=== PATIENT | female | born 1965 | race Caucasian/White ===

== ENCOUNTER 2018-04-26 15:36 | Inpatient (IN) | payer BC ==
[~2018-04-26] VITALS: Ht 165.1 cm; Wt 64.4 kg
[2018-04-26] MEDS ORDERED: diphenhydrAMINE 50 MG/ML VIAL IVP ONE (16:00)
[2018-04-26] MEDS ORDERED: METOCLOPRAMIDE 10 MG/2 ML SDV IVP ONE (16:00)
[2018-04-26] MEDS ORDERED: BUPR-472 PO (16:03)
[2018-04-26] MEDS ORDERED: VALA500T66 PO (16:03)
[2018-04-26] MEDS ORDERED: CITA-155 PO (16:03)
[2018-04-26] MEDS ORDERED: LEVO-3 PO (16:03)
--- NOTE | 2018-04-26 16:03 | ER Report ---
History and Physical Time Seen By MD: 15:50 Hx. of Stated Complaint: Pt. having headache with posterior neck stiffness. Headache started on Thursday, but was seen at [facility] on Thursday, diagnosed with right ear infection and prescribed Cefdinir. Also vomiting. Afebrile. (JUAN LUIS VOGEL MD) HPI/ROS CHIEF COMPLAINT: Headache HISTORY OF PRESENT ILLNESS: 52-year-old female has had headache since Thursday. Headache began gradually, initially in anterior head. She was seen at urgent care for this and felt to have an ear infection and treated with antibiotics. However since this time she has had worsening headache and now complains of neck stiffness. Patient has headache throughout the head that is severe and throbbing. She denies fevers, chills, blurred vision, weakness or numbness, confusion, chest pain, shortness breath, abdominal pain. She does have vomiting and vomited this morning. She denies urinary symptoms or rash. She has continued ear pain. REVIEW OF SYSTEMS: Constitutional: No fever, no chills. Eyes: No discharge. ENT: No sore throat. Cardiovascular: No chest pain, no palpitations. Respiratory: No cough, no shortness of breath. Gastrointestinal: above Genitourinary: no change in urinary symptoms Musculoskeletal: No back pain. Skin: No rashes. Neurological: above Remainder of the 14 system rev: Yes (JUAN LUIS VOGEL MD) Allergies: Coded Allergies: amoxicillin (Verified Allergy, Mild, Hives, 04/26/18) Home Meds Reported Medications Valacyclovir Hcl (VALTREX) 500 Mg Tablet, 500 MG PO DAILY 04/26/18 Citalopram Hydrobromide (CELEXA) 10 Mg Tablet, 20 MG PO QDAY, #10 TAB 04/26/18 Bupropion Hcl (WELLBUTRIN XL) 150 Mg Tab.er.24h, 150 MG PO QDAY, TAB 04/26/18 Levothyroxine Sodium (LEVOTHYROXINE SODIUM) 100 Mcg Tablet, 100 MCG PO QDAY, TAB 04/26/18 Old Medical Records Reviewed: Yes (JUAN LUIS VOGEL MD) Hx Smoking: No (JUAN LUIS VOGEL MD) Constitutional Vital Sign - Last 24 Hours 04/26/18 04/26/18 04/26/18 04/26/18 15:48 15:50 15:52 16:00 Temp 98.7 Pulse 68 Resp 16 B/P (MAP) 224/104 (144) 221/110 221/110 (147) 217/104 (141) Pulse Ox 95 O2 Delivery Room Air 04/26/18 04/26/18 04/26/18 04/26/18 16:06 16:11 16:30 16:41 Pulse 60 58 56 B/P (MAP) 181/98 (125) Pulse Ox 96 96 95 O2 Delivery Room Air 04/26/18 04/26/18 04/26/18 04/26/18 16:45 17:01 17:30 17:45 Pulse 56 50 B/P (MAP) 176/94 (121) 117/79 (92) Pulse Ox 93 92 04/26/18 04/26/18 17:50 19:20 Pulse 51 52 Pulse Ox 93 95 (HUMBERTO WEISS MD) Physical Exam General Appearance: The patient is alert, has no immediate need for airway protection and no signs of toxicity. Eyes: Pupils equal and round no pallor or injection. ENT, Mouth: Mucous membranes are moist. Respiratory: There are no retractions, lungs are clear to auscultation. Cardiovascular: Regular rate and rhythm. Gastrointestinal: Abdomen is soft and non tender, no masses, bowel sounds normal. Neurological: alert, oriented x 3, cn ii-xii intact, 5/5 ms, nl sensation slight lower ext hyperreflexia No myoclonus Skin: Warm and dry, no rashes. Musculoskeletal: bilat neck pain and mild ttp Extremities are nontender, nonswollen and have full range of motion. DIFFERENTIAL DIAGNOSIS: After history and physical exam differential diagnosis was considered for headache including but not limited to subarachnoid hemorrhage, migraine headache, tension headache and infectious causes such as meningitis, pharyngitis and sinusitis. (JUAN LUIS VOGEL MD) Medical Decision Making Data Points Result Diagram: 04/27/18 0531 04/27/18 0531 Laboratory Hematology Test 04/26/18 00:00 04/26/18 16:15 04/26/18 17:00 04/26/18 17:29 CSF WBC 60 /mm3 (0-5) CSF RBC 6932 /mm3 CSF Glucose 61 mg/dl CSF Total Protein 113 mg/dl (15-50) Red Blood Count 5.35 M/uL (4.17-5.56) Mean Corpuscular Volume 83.7 fL (80.0-96.0) Mean Corpuscular Hemoglobin 28.2 pg (26.0-33.0) Mean Corpuscular Hemoglobin Concent 33.7 g/dL (32.0-36.0) Red Cell Distribution Width 14.1 % (11.5-14.5) Mean Platelet Volume 8.4 fL (7.2-11.1) Neutrophils (%) (Auto) 70.7 % (39.4-72.5) Lymphocytes (%) (Auto) 22.9 % (17.6-49.6) Monocytes (%) (Auto) 5.3 % (4.1-12.4) Eosinophils (%) (Auto) 0.7 % (0.4-6.7) Basophils (%) (Auto) 0.4 % (0.3-1.4) Nucleated RBC Relative Count (auto) 0.1 /100WBC Neutrophils # (Auto) 4.9 K/uL (2.0-7.4) Lymphocytes # (Auto) 1.6 K/uL (1.3-3.6) Monocytes # (Auto) 0.4 K/uL (0.3-1.0) Eosinophils # (Auto) 0.0 K/uL (0.0-0.5) Basophils # (Auto) 0.0 K/uL (0.0-0.1) Nucleated RBC Absolute Count (auto) 0.01 K/uL Prothrombin Time 12.9 seconds (12.0-14.4) Prothromb Time International Ratio 0.97 Activated Partial Thromboplast Time 29 seconds (23-35) Sodium Level 138 mmol/L (137-145) Potassium Level 3.8 mmol/L (3.5-5.0) Chloride Level 107 mmol/L (98-107) Carbon Dioxide Level 26 mmol/L (22-31) Blood Urea Nitrogen 14 mg/dl (7-18) Creatinine 0.60 mg/dl (0.52-1.04) Glomerular Filtration Rate Calc > 60.0 Random Glucose 95 mg/dl (75-110) Calcium Level 9.3 mg/dl (8.4-10.2) Total Bilirubin 0.5 mg/dl (0.2-1.3) Aspartate Amino Transf (AST/SGOT) 22 U/L (0-35) Alanine Aminotransferase (ALT/SGPT) 42 U/L (0-56) Alkaline Phosphatase 59 U/L (0-126) Total Protein 7.0 g/dl (6.3-8.2) Albumin 3.8 g/dl (3.5-5.0) Urine Color Straw Urine Clarity Clear Urine pH 5.0 pH (4.8-9.5) Urine Specific [place] 1.010 Urine Protein Negative mg/dL (NEGATIVE) Urine Glucose (UA) Negative mg/dL (NEGATIVE) Urine Ketones Negative mg/dL (NEGATIVE) Urine Blood Negative (NEGATIVE) Urine Nitrite Negative (NEGATIVE) Urine Bilirubin Negative (NEGATIVE) Urine Urobilinogen Negative mg/dL (0.2-1.9) Urine Leukocyte Esterase Negative (NEGATIVE) Urine RBC None /HPF (0-2/HPF) Urine WBC <1 /HPF (0-5/HPF) Urine Squamous Epithelial Cells Few /LPF (</=FEW) Urine Bacteria Negative /HPF (NONE-FEW) Urine Mucus None /HPF (NONE-FEW) Body Fluid WBC 596 Body Fluid RBC 17 Chemistry Test 04/26/18 00:00 04/26/18 16:15 04/26/18 17:00 04/26/18 17:29 CSF WBC 60 /mm3 (0-5) CSF RBC 6932 /mm3 CSF Glucose 61 mg/dl CSF Total Protein 113 mg/dl (15-50) White Blood Count 7.0 k/uL (4.5-11.0) Red Blood Count 5.35 M/uL (4.17-5.56) Hemoglobin 15.1 g/dL (12.0-16.0) Hematocrit 44.8 % (34.0-47.0) Mean Corpuscular Volume 83.7 fL (80.0-96.0) Mean Corpuscular Hemoglobin 28.2 pg (26.0-33.0) Mean Corpuscular Hemoglobin Concent 33.7 g/dL (32.0-36.0) Red Cell Distribution Width 14.1 % (11.5-14.5) Platelet Count 235 K/uL (150-450) Mean Platelet Volume 8.4 fL (7.2-11.1) Neutrophils (%) (Auto) 70.7 % (39.4-72.5) Lymphocytes (%) (Auto) 22.9 % (17.6-49.6) Monocytes (%) (Auto) 5.3 % (4.1-12.4) Eosinophils (%) (Auto) 0.7 % (0.4-6.7) Basophils (%) (Auto) 0.4 % (0.3-1.4) Nucleated RBC Relative Count (auto) 0.1 /100WBC Neutrophils # (Auto) 4.9 K/uL (2.0-7.4) Lymphocytes # (Auto) 1.6 K/uL (1.3-3.6) Monocytes # (Auto) 0.4 K/uL (0.3-1.0) Eosinophils # (Auto) 0.0 K/uL (0.0-0.5) Basophils # (Auto) 0.0 K/uL (0.0-0.1) Nucleated RBC Absolute Count (auto) 0.01 K/uL Prothrombin Time 12.9 seconds (12.0-14.4) Prothromb Time International Ratio 0.97 Activated Partial Thromboplast Time 29 seconds (23-35) Glomerular Filtration Rate Calc > 60.0 Calcium Level 9.3 mg/dl (8.4-10.2) Total Bilirubin 0.5 mg/dl (0.2-1.3) Aspartate Amino Transf (AST/SGOT) 22 U/L (0-35) Alanine Aminotransferase (ALT/SGPT) 42 U/L (0-56) Alkaline Phosphatase 59 U/L (0-126) Total Protein 7.0 g/dl (6.3-8.2) Albumin 3.8 g/dl (3.5-5.0) Urine Color Straw Urine Clarity Clear Urine pH 5.0 pH (4.8-9.5) Urine Specific [place] 1.010 Urine Protein Negative mg/dL (NEGATIVE) Urine Glucose (UA) Negative mg/dL (NEGATIVE) Urine Ketones Negative mg/dL (NEGATIVE) Urine Blood Negative (NEGATIVE) Urine Nitrite Negative (NEGATIVE) Urine Bilirubin Negative (NEGATIVE) Urine Urobilinogen Negative mg/dL (0.2-1.9) Urine Leukocyte Esterase Negative (NEGATIVE) Urine RBC None /HPF (0-2/HPF) Urine WBC <1 /HPF (0-5/HPF) Urine Squamous Epithelial Cells Few /LPF (</=FEW) Urine Bacteria Negative /HPF (NONE-FEW) Urine Mucus None /HPF (NONE-FEW) Body Fluid WBC 596 Body Fluid RBC 17 Coagulation Test 04/26/18 16:15 Prothrombin Time 12.9 seconds Prothromb Time International Ratio 0.97 Activated Partial Thromboplast Time 29 seconds Urinalysis Test 04/26/18 17:00 Urine Color Straw Urine Clarity Clear Urine pH 5.0 pH (4.8-9.5) Urine Specific [place] 1.010 Urine Protein Negative mg/dL (NEGATIVE) Urine Glucose (UA) Negative mg/dL (NEGATIVE) Urine Ketones Negative mg/dL (NEGATIVE) Urine Blood Negative (NEGATIVE) Urine Nitrite Negative (NEGATIVE) Urine Bilirubin Negative (NEGATIVE) Urine Urobilinogen Negative mg/dL (0.2-1.9) Urine Leukocyte Esterase Negative (NEGATIVE) Urine RBC None /HPF (0-2/HPF) Urine WBC <1 /HPF (0-5/HPF) Urine Squamous Epithelial Cells Few /LPF (</=FEW) Urine Bacteria Negative /HPF (NONE-FEW) Urine Mucus None /HPF (NONE-FEW) (HUMBERTO WEISS MD) Microbiology Microbiology Date/Time Source Procedure Growth Status 04/26/18 00:00 Cerebrospinal Fluid Gram Stain - Final Resulted 04/26/18 00:00 Cerebrospinal Fluid CSF Culture Pending Resulted (HUMBERTO WEISS MD) EKG/Imaging Imaging EXAMINATION: MR brain without and with IV contrast HISTORY: Severe headache. History of HSV. COMPARISON: CT head without contrast performed today TECHNIQUE: Multi-planar, multi-sequence brain MRI was performed without and with IV contrast administration. Contrast: 14 mL of IV MultiHance. FINDINGS: Brain volume: Normal. Sagittal midline structures: Normal. Ventricles: Normal. Acute ischemic changes: None. Hemorrhage: None. Masses / edema: None. Enhancement: Normal. Stephen-white: Negative. White matter lesions: Single nonspecific punctate focus of T2/FLAIR hyperintensity in the white matter of the right insula. Vessels: Normal. Extra-axial: None. Calvarium / scalp: Negative. Skull base: Negative. Visualized sinuses / orbits: Negative. Visualized upper neck: Negative. IMPRESSION: 1. No MR evidence of acute infarct or other acute intracranial pathology. 2. Single nonspecific punctate focus of white matter signal along the right insula. Report Dictated By: Pankaj Skinner MD at 04/26/2018 7:15 PM EXAMINATION: MRA of the [place] HISTORY: Severe headache. History of HSV. COMPARISON: None. TECHNIQUE: 5Z-jwty-ln-flight angiography was performed in the axial plane on the [place] without IV gadolinium. The exam was tailored for assessment of the [place] only. Only limited sequences were obtained of the rest of the brain. FINDINGS: Petrous carotids: Negative. Carotid siphons / bifurcations: Negative. Anterior / Posterior communicating arteries: Negative. Anterior cerebral arteries: Negative. Middle cerebral arteries: Negative. Intra-cranial vertebral arteries: Negative. Left vertebral dominance. Basilar artery: Negative. PICA / AICA / SCA / EDGER TAILER: Negative. Non-angiographic Findings: None significant. IMPRESSION: Normal MRA of the [place] without evidence of intracranial aneurysm. (HUMBERTO WEISS MD) ED Course/Re-evaluation ED Course Pt presents with severe headache and uncontrolled htn concerning for emergent etiology including sah, hypertensive encephalitis. CT unremarkable. Of note, with iv medication, pt's symptoms improve somewhat, and SBP improves 50 points from 220-170. CSF initially bloody and mostly clears; consider sah v temporal lobe hemorrhage given pt's hx of HSV. T/o to Dr. Weiss at 1800 awaiting MRI/MRA and remainder of csf studies; given csf wbc will admit for cultures. Procedure Procedure: Lumbar puncture. Indication: Headache. After verbal informed consent from patient explaining the risks including infection, bleeding, and neurologic damage, a lumbar puncture was performed after the patient was prepped and draped in the usual fashion. The back was anesthetized with 1% lidocaine. Approximately 4 cc of slightly discolored fluid was obtained. Opening pressure was not obtained. There were no complications. The procedure was performed by myself. Decision to Disposition Date: Apr 26, 2018 Decision to Disposition Time: 19:00 Critical Care Time I spent a total of 40 minutes of critical care time in obtaining history, performing a physical exam, bedside monitoring of interventions, collecting and interpreting tests and discussion with consultants but not including time spent performing procedures. (JUAN LUIS VOGEL MD) Clinical Indication for ER IV: Hydration, IV Access ED Course I assumed care of this patient from Dr. Vogel at shift change. Signs on lumbar puncture of possible meningitis, with neck stiffness and headache. Recently treated with oral cephalosporin for ear infection. Also recent cold sore. Works as a nurse, travelling, cancer center. Had normal blood work and negative CT scan. Elevated blood pressures, improved with Benadryl and Phenergan for headache. Still with pain. MRI and MRA negative as noted above. Admitted to medical after discussing with Dr. Arce. Has been started on IV Vancomycin, IV Rocephin, and IV Acyclovir. Decision to Disposition Date: Apr 26, 2018 Decision to Disposition Time: 20:11 (HUMBERTO WEISS MD) Depart Departure Latest Vital Signs Vital Signs Date Time Temp Pulse Resp B/P (MAP) Pulse Ox O2 Delivery O2 Flow Rate FiO2 04/26/18 19:20 52 95 04/26/18 17:30 117/79 (92) 04/26/18 16:06 Room Air 04/26/18 15:50 98.7 16 (HUMBERTO WEISS MD) Impression: Primary Impression: Viral meningitis, unspecified Condition: Condition Unchanged Disposition: Admitted from ER JUAN LUIS VOGEL MD Apr 26, 2018 16:03 HUMBERTO WEISS MD Apr 26, 2018 19:20
[2018-04-26 16:27] LABS: PLATELET COUNT, AUTOMATED 235 K/uL (150-450)
[2018-04-26 16:35] LABS: INR 0.97
--- NOTE | 2018-04-26 17:13 | RADIOLOGY IMAGING REPORT ---
FACILITY: PATIENT NAME: Dana Granda : 1965 MR: [id number] V: [id number] EXAM DATE: ORDERING PHYSICIAN: JUAN LUIS VOGEL TECHNOLOGIST: [place] [facility] [place]: Dana Granda : 1965 Visit/Account:[id number] Date of Sevice: 04/26/2018 EXAMINATION: CT head without IV contrast HISTORY: Headache. TECHNIQUE: Axial CT images of the head were obtained from the vertex to the skull base without IV c ontrast, with coronal and sagittal 2D reconstructed images. One of the following dose optimization techniques was utilized in the performance of this exam: Autom ated exposure control; adjustment of the mA and/or kV according to the patient's size; or use of an i terative reconstruction technique. Specific details can be referenced in the facility's radiology C T exam operational policy. COMPARISON: None. FINDINGS: The intracranial contents are unremarkable. No CT evidence of intracranial hemorrhage, mass lesion, or acute infarct. No midline shift or extra-axial fluid collections. Stephen-white differentiation is maintained. The calvarium is intact. The visualized paranasal sinuses and mastoid air cells are unopacified. IMPRESSION: Unremarkable noncontrast head CT. Report Dictated By: Pankaj Skinner MD at 04/26/2018 5:05 PM Report E-Signed By: Pankaj Skinner MD at 04/26/2018 5:09 PM WSN:[id number]
[2018-04-26] MEDS ORDERED: GADOBENATE 529MG/1ML 15ML VIAL IVP ONE (18:03)
[2018-04-26] MEDS ORDERED: ADDVIAL IVPB ONE (18:15)
[2018-04-26] MEDS ORDERED: ACYCLOVIR IVPB SCH (18:15)
[2018-04-26] MEDS ORDERED: NS 0.9% IVPB ONE (18:15)
[2018-04-26] MEDS ORDERED: NS 0.9% IVPB SCH (18:15)
[2018-04-26] MEDS ORDERED: VANCOMYCIN IVPB ONE (18:15)
[2018-04-26] MEDS ORDERED: cefTRIAXone 2 GM VIAL IVP ONE (18:15)
--- NOTE | 2018-04-26 18:21 | RADIOLOGY IMAGING REPORT ---
[place] [facility] [place] Dana Granda : 1965 MR: [id number] V: [id number] EXAM DATE: ORDERING PHYSICIAN: JUAN LUIS VOGEL TECHNOLOGIST: Location: [facility] - [place] Patient: Dana Granda : 1965 Visit/Account:[id number] Date of Sevice: 04/26/2018 Examination: KUB SINGLE VIEW ABDOMEN Comparison: None. History: Pre-MRI evaluation. Findings: Upper abdominal surgical staple line compatible with the history of a sleeve gastrectomy. N o metallic foreign bodies are otherwise identified. IMPRESSION: Gastric staple line. No other metallic foreign bodies in the abdomen. Report Dictated By: Lele Edwards MD at 04/26/2018 6:13 PM Report E-Signed By: Lele Edwards MD at 04/26/2018 6:16 PM WSN:[id number]
--- NOTE | 2018-04-26 19:27 | RADIOLOGY IMAGING REPORT ---
[place] [facility] [place] NAME: Dana Granda : 1965 MR: [id number] V: [id number] EXAM DATE: ORDERING PHYSICIAN: JUAN LUIS VOGEL TECHNOLOGIST: Location: [facility] [place] Patient: Dana Grnada : 1965 Visit/Account:[id number] Date of Sevice: 04/26/2018 EXAMINATION: MR brain without and with IV contrast HISTORY: Severe headache. History of HSV. COMPARISON: CT head without contrast performed today TECHNIQUE: Multi-planar, multi-sequence brain MRI was performed without and with IV contrast adminis tration. Contrast: 14 mL of IV MultiHance. FINDINGS: Brain volume: Normal. Sagittal midline structures: Normal. Ventricles: Normal. Acute ischemic changes: None. Hemorrhage: None. Masses / edema: None. Enhancement: Normal. Stephen-white: Negative. White matter lesions: Single nonspecific punctate focus of T2/FLAIR hyperintensity in the white matte r of the right insula. Vessels: Normal. Extra-axial: None. Calvarium / scalp: Negative. Skull base: Negative. Visualized sinuses / orbits: Negative. Visualized upper neck: Negative. IMPRESSION: 1. No MR evidence of acute infarct or other acute intracranial pathology. 2. Single nonspecific punctate focus of white matter signal along the right insula. Report Dictated By: Pankaj Skinner MD at 04/26/2018 7:15 PM Report E-Signed By: Pankaj Skinner MD at 04/26/2018 7:24 PM WSN:[id number]
--- NOTE | 2018-04-26 19:30 | RADIOLOGY IMAGING REPORT ---
FACILITY: [facility] PATIENT NAME: Dana rGanda : 1965 MR: [id number] V: [id number] EXAM DATE: ORDERING PHYSICIAN: JUAN LUIS VOGEL TECHNOLOGIST: Location: [facility] Patient: Dana Granda : 1965 Visit/Account:[id number] Date of Sevice: 04/26/2018 EXAMINATION: MRA of the [place] HISTORY: Severe headache. History of HSV. COMPARISON: None. TECHNIQUE: 6A-eeod-nc-flight angiography was performed in the axial plane on the [place] without IV taz olinium. The exam was tailored for assessment of the [place] only. Only limited sequences were obtai karrie of the rest of the brain. FINDINGS: Petrous carotids: Negative. Carotid siphons / bifurcations: Negative. Anterior / Posterior communicating arteries: Negative. Anterior cerebral arteries: Negative. Middle cerebral arteries: Negative. Intra-cranial vertebral arteries: Negative. Left vertebral dominance. Basilar artery: Negative. PICA / AICA / SCA / WORKFORCE SPECIALIST: Negative. Non-angiographic Findings: None significant. IMPRESSION: Normal MRA of the [place] of [place] without evidence of intracranial aneurysm. Report Dictated By: Pankaj Skinner MD at 04/26/2018 7:24 PM Report E-Signed By: Pankaj Skinner MD at 04/26/2018 7:27 PM WSN:[id number]
[2018-04-26] MEDS ORDERED: KETOROLAC 30 MG/ML VIAL IVP ONE (20:45)
[2018-04-26 21:08] VITALS: BP 162/75
[2018-04-26] MEDS ORDERED: NS(*) 0.9% 1000 ML BAG 1,000 ML IV PRN (21:49)
[2018-04-26] MEDS ORDERED: ONDANSETRON 4 MG/2 ML VIAL IVP PRN (21:50)
[2018-04-26] MEDS ORDERED: FLUSH 10 ML SYR IVP PRN (21:50)
[2018-04-26] MEDS ORDERED: INFLUENZA VIRUS VAC 0.5ML SYR IM ONLY ONE (21:50)
--- NOTE | 2018-04-26 22:04 | History & Physical ---
History of Present Illness Chief Complaint headache History of Present Illness 52F presented to [facility] ER with concern for SOSA. Seen in urgent care Thursday and diagnosed with ear infection. 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 LP performed and meningitis dosing of Abx started. Imaging negative for bleed or acute pathology. LP contained increased WBC and protein. Admitted for observation, IV abx and await Cx. History Problems: (1) Depression (2) Hypothyroid Home Meds Reported Medications Valacyclovir Hcl (VALTREX) 500 Mg Tablet, 500 MG PO DAILY 04/26/18 Citalopram Hydrobromide (CELEXA) 10 Mg Tablet, 20 MG PO QDAY, #10 TAB 04/26/18 Bupropion Hcl (WELLBUTRIN XL) 150 Mg Tab.er.24h, 150 MG PO QDAY, TAB 04/26/18 Levothyroxine Sodium (LEVOTHYROXINE SODIUM) 100 Mcg Tablet, 100 MCG PO QDAY, TAB 04/26/18 Allergies: Coded Allergies: amoxicillin (Verified Allergy, Mild, Hives, 04/26/18) Patient History: FH: HTN (hypertension) Hx Smoking: No Smoking Status: Former Smoker When Quit Tobacco?: 30 years ago Hx Alcohol Use: Yes Hx Substance Use Disorder: No Review of Systems All Systems Reviewed/Normal: Yes, Except as Noted Neurological: Other (headache, photophobia); No Syncope, No Confusion, No Weakness, No Dizziness Exam Vital Signs Vital Signs Date Time Temp Pulse Resp B/P (MAP) Pulse Ox O2 Delivery O2 Flow Rate FiO2 04/26/18 21:08 98.4 51 16 162/75 (104) 95 Room Air General Appearance: Alert, Awake, No Acute Distress, Afebrile Neuro: No Gross deficits (CN 2-12 intact, 5/5 strength all extremities) Eyes: PERRLA ENT: Normal Cardiovascular: Normal Rhythm & Peripheral Pulses Respiratory: No Respiratory Distress GI: Abd Soft and Non-Tender Extremities: Soft and Non Tender, Warm, Pulses, Perfused; No Edema Integumentary: Skin Intact without Lesion / Mass Medical Decision Making Data Points Result Diagram: 04/26/18 1615 04/26/18 1615 EKG / Imaging Imaging IMPRESSION: Normal MRA of the [place] without evidence of intracranial aneurysm. Assessment and Plan Problems: (1) Meningitis Assessment & Plan: LP consistent with viral meningitis with elevated protein, WBC, normal glucose. PE and presentation more consistent with viral. Will continue meningitis dosing antibiotics and acyclovir, await CSF Cx and serology. (2) Depression Assessment & Plan: Continue chronic Wellbutrin, citalopram. (3) Hypothyroid Assessment & Plan: Continue chronic levothyroxine. Venous Thromboembolism Antithrombotics Is Pt On Any Antithrombotics?: No (early ambulation) Exam Sepsis Risk: No Definite Risk CASTILLO MORA FERRER DO Apr 26, 2018 22:04
[2018-04-27] MEDS ORDERED: WATER FOR INJ,STERILE 20 ML 20 ML ONE (00:36)
[2018-04-27] MEDS ORDERED: WATER STERILE(*) 10 ML VIAL 10 ML ONE (00:51)
[2018-04-27] MEDS ORDERED: NS 0.9% IVPB SCH ×2 (01:00→03:00)
[2018-04-27] MEDS ORDERED: ACYCLOVIR IVPB SCH ×2 (01:00→03:00)
[2018-04-27] MEDS: VANCOMYCIN(*) 1 GM VIAL 1 GM, VANCOMYCIN (*) 0.5 GM VIAL 0.5 GM in NS(*) 0.9% 250 ML BA... IVPB SCH ×2 (01:04→09:02)
[2018-04-27] MEDS: ACETAMINOPHEN 325 MG TAB PO PRN ×3 (01:11→20:08)
[2018-04-27] MEDS ORDERED: cefTRIAXone 2 GM VIAL IVP SCH ×2 (02:00→15:00)
[2018-04-27 04:53] VITALS: BP 132/62
[2018-04-27] MEDS: LEVOTHYROXINE SOD 0.1 MG TAB PO SCH (05:24)
[2018-04-27 06:04] LABS: PLATELET COUNT, AUTOMATED 209 K/uL (150-450)
[2018-04-27 07:24] VITALS: BP 147/74
[2018-04-27] MEDS ORDERED: CITALOPRAM HYDROBROM 20 MG TAB PO SCH (09:00)
[2018-04-27] MEDS: buPROPion XL 150 MG TABCR PO SCH (09:01)
[2018-04-27 09:57] VITALS: Ht 165.1 cm; Wt 64.4 kg
[2018-04-27 10:45] VITALS: BP 146/85
[2018-04-27] MEDS: NAPROXEN 500 MG TAB PO PRN (10:50)
[2018-04-27] MEDS: NS 0.9% IVPB SCH ×2 (11:32→19:34)
[2018-04-27] MEDS: ACYCLOVIR IVPB SCH ×2 (11:32→19:34)
[2018-04-27] MEDS ORDERED: LAMO100T52 PO (12:29)
[2018-04-27] MEDS ORDERED: CEF300 PO (12:32)
[2018-04-27] MEDS ORDERED: CITA-141 PO (13:11)
[2018-04-27] MEDS ORDERED: PSEUDOEPHEDRINE LA 120MG TABCR PO PRN (13:35)
--- NOTE | 2018-04-27 13:39 | Hospitalist Progress Note ---
Subjective Progress Notes Subjective Still having photophobia, headache and neck pain. However, reporting improvement. Physical Exam Vital Signs Date Time Temp Pulse Resp B/P (MAP) Pulse Ox O2 Delivery O2 Flow Rate FiO2 04/27/18 10:45 98.5 52 10 146/85 (105) 94 Room Air Intake and Output 04/27/18 07:00 Intake Total 627.7 ml Balance 627.7 ml IV Total 627.7 ml General Appearance: Alert, Awake, Other (Pale and mildly uncomfortable.) Neuro: No Gross deficits Eyes: PERRLA ENT: Moist Mucous Membranes, Other (No pain of ears, no erythema in auditory canals. TM's clear. No pain with speculum in the ears) Neck: Other (Neck pain with flexion. No discomfort with straightening legs with hip flexed.) Cardiovascular: Regular Rate and Rhythm Respiratory: Clear to Auscultation Result Diagram: 04/27/1853004/27/18530 Assessment and Plan Problems: (1) Meningitis Assessment & Plan: She presented with a few days of worsening headache, fever, neck pain and head congestion. LP consistent with viral meningitis with elevated protein, WBC, normal glucose. PE and presentation more consistent with viral. Antigen study negative. Gram stain negative. Will stop vancomycin and decrease dose of ceftriaxone (see below). Continue Acyclovir. HSV PCR pending. 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 (2) Otitis media Status: Acute Assessment & Plan: She was started on Omnicef 3 days ago at Urgent Care for concern of right sided otitis media. No evidence of infection by exam, today. She never had pain, but couldn't hear well and had head congestion. Will use Rocephin for now (i.e. Reduced the dose to 2g q24h) to treat. (3) Depression Assessment & Plan: Continue chronic Wellbutrin, citalopram. (4) Hypothyroid Assessment & Plan: Continue chronic levothyroxine. Exam Sepsis Risk: No Definite Risk VALERI RICHARDSON MD Apr 27, 2018 13:39
[2018-04-27 14:47] VITALS: BP 165/79
[2018-04-27 20:13] VITALS: BP 167/79
[2018-04-27] MEDS ORDERED: LORazepam 2 MG/ML VIAL IVP ONE (20:45)
[2018-04-27 23:36] VITALS: BP 167/93
[2018-04-28] MEDS: NS 0.9% IVPB SCH (03:38)
[2018-04-28] MEDS: ACYCLOVIR IVPB SCH (03:38)
[2018-04-28 04:01] VITALS: BP 176/82
[2018-04-28] MEDS ORDERED: cefTRIAXone 2 GM VIAL IVP SCH (06:00)
[2018-04-28] MEDS: LEVOTHYROXINE SOD 0.1 MG TAB PO SCH (06:06)
[2018-04-28] MEDS: NAPROXEN 500 MG TAB PO PRN (06:06)
[2018-04-28 07:29] LABS: PLATELET COUNT, AUTOMATED 199 K/uL (150-450)
[2018-04-28 07:56] VITALS: BP 189/99
[2018-04-28] MEDS ORDERED: lamoTRIgine 25 MG TAB PO SCH (09:00)
[2018-04-28] MEDS ORDERED: CITALOPRAM HYDROBROM 20 MG TAB PO SCH (09:00)
[2018-04-28] MEDS: buPROPion XL 150 MG TABCR PO SCH (09:29)
[2018-04-28] MEDS ORDERED: ACYC-1 PO (09:53)
--- NOTE | 2018-04-28 09:58 | Hospitalist Depart ---
Discharge Summary Reason for Hosp/Final Diag: (1) Viral meningitis, unspecified Status: Acute Hospital Course & Plan: She presented with a few days of worsening headache, fever, neck pain and head congestion. Her lumbar puncture was consistent with a viral meningitis. She was initially placed on empiric treatment with ceftriaxone and vancomycin, but these were discontinued when her cultures were negative. She was also placed on acyclovir at admission. Her HSV studies are still pending. She will discharge on oral acyclovir and follow up in the clinic early next week. The acyclovir may be discontinued if her HSV PCR is negative at follow up. (2) Otitis media Status: Acute Hospital Course & Plan: She was started on Omnicef 3 days ago at Urgent Care for concern of right sided otitis media. Her tympanic membranes have been clear since admission. She was instructed to stop the Omnicef. (3) Depression Hospital Course & Plan: She is on chronic treatment with Wellbutrin and citalopram. (4) Hypothyroid Hospital Course & Plan: She is on chronic treatment with levothyroxine. Departure Latest Vital Signs Vital Signs 04/28/18 04/28/18 04:01 07:56 Temp 98.6 Pulse 56 Resp 16 B/P (MAP) 189/99 (129) Pulse Ox 97 O2 Delivery Room Air Weight (Pounds): 142 Result Diagram: 04/28/1872004/28/18720 Condition: Improved Discharge: Home, Self Care Discharge Instructions Home Meds Active Scripts Acyclovir (ACYCLOVIR) 200 Mg Capsule, 600 MG PO TID, #90 CAP Prov:INGRIS BEAL DO 04/28/18 Reported Medications Citalopram Hydrobromide (CITALOPRAM HBR) 40 Mg Tablet, 40 MG PO QDAY for 90 Days, #90 TAB 04/27/18 Lamotrigine (LAMOTRIGINE) 100 Mg Tablet, 50 MG PO QDAY for 90 Days 04/27/18 Bupropion Hcl (WELLBUTRIN XL) 150 Mg Tab.er.24h, 150 MG PO BID for 90 Days, TAB 04/26/18 Levothyroxine Sodium (LEVOTHYROXINE SODIUM) 100 Mcg Tablet, 100 MCG PO QDAY for 90 Days, #90 TAB 04/26/18 Discontinued Reported Medications Cefdinir 300 Mg Cap (OMNICEF 300 MG CAP (OR EQUIV)) 300 Mg Cap, 300 MG PO BID for 10 Days, #20 CAP 04/27/18 Valacyclovir Hcl (VALTREX) 500 Mg Tablet, 500 MG PO DAILY 04/26/18 Citalopram Hydrobromide (CELEXA) 10 Mg Tablet, 20 MG PO QDAY, #10 TAB 04/26/18 Diet: Regular Activity: As Tolerated Copies to: KYMBERLY CHANDLER MD; FERNANDO JASSO MD ; Venous Thromboembolism Antithrombotics Is Pt On Any Antithrombotics?: No (early ambulation) INGRIS BEAL DO Apr 28, 2018 09:58
== END 2018-04-28 10:50 | disposition home or self-care (01) | DRG 76 ==
LOC: ER 15:53 → MED 20:46
PROVIDERS: ADMIT Internal Medicine; ATTEND Internal Medicine
PROC: 009U3ZX Drainage of Spinal Canal, Percutaneous Approach, Diagnostic (ICD-10-PCS; principal; 2018-04-26)
DX: A87.9 Viral meningitis, unspecified (principal); H66.91 Otitis media, unspecified, right ear; F32.9 Major depressive disorder, single episode, unspecified; E03.9 Hypothyroidism, unspecified; Z88.0 Allergy status to penicillin
CPT/HCPCS: 36415; 70450; 70544; 70553; 74018; 81001; 82040; 82247; 82310; 82374; 82435; 82565; 82945; 82947; 84075; 84132; 84155; 84157; 84295; 84450; 84460; 84520; 85025; 85610; 85730; 87070; 87205; 87529; 87899; 89050; 96365; 96368; 96375; A9577; J0133; J0696; J1200; J1885; J2060; J2765; J3370; J7030; J7050

== ENCOUNTER 2018-05-10 12:54 | Emergency (ER) | payer BC ==
[2018-04-27 09:57] VITALS: Ht 165.1 cm; Wt 55.8 kg
[~2018-05-10] VITALS: Ht 165.1 cm; Wt 55.8 kg
[~2018-05-10 12:54] MED LIST: ACYC-1 PO; BUPR-472 PO; CEF300 PO; CITA-141 PO; CITA-155 PO; KET10 PO; LAMO100T52 PO; LEVO-3 PO; LEVO50TA86 PO; LISI-362 PO; PROC-5 PO; VALA500T66 PO
--- NOTE | 2018-05-10 13:03 | ER Report ---
History and Physical Time Seen By MD: 13:04 HPI/ROS CHIEF COMPLAINT: headache HISTORY OF PRESENT ILLNESS: Patient is a 14 days status post lumbar puncture which showed a findings consistent with viral meningitis. She has had continued positional headaches without fever, with mild nausea. She has hx of htn and has recently been restarted on lisinopril last week by pcm. She has been taking ibuprofen and caffeine daily. Had 3 cups coffee today without relief. Pain is improved to 3/10 when lying down, significantly worse when standing. No new numbness, weakness. REVIEW OF SYSTEMS: Constitutional: No fever, no chills. Eyes: No discharge. ENT: No sore throat. Cardiovascular: No chest pain, no palpitations. Respiratory: No cough, no shortness of breath. Gastrointestinal: No abdominal pain, no vomiting. Genitourinary: No hematuria. Musculoskeletal: No back pain. Skin: No rashes. Neurological: above Remainder of the 14 system rev: Yes Allergies: Coded Allergies: amoxicillin (Verified Allergy, Mild, Hives, 04/26/18) Home Meds Active Scripts Prochlorperazine Maleate (PROCHLORPERAZINE MALEATE) 10 Mg Tablet, 10 MG PO Q8H for PAIN for 3 Days, #14 TAB Prov:KATIE VOGEL MD 05/09/18 Ketorolac Tromethamine (KETOROLAC TROMETHAMINE) 10 Mg Tab, 10 MG PO Q6H PRN for PAIN, #12 TAB 0 Refills Prov:KATIE VOGEL MD 05/09/18 Lisinopril (LISINOPRIL) 10 Mg Tablet, 1 TAB PO QDAY for 90 Days, #90 TAB 0 Refills Prov:GABINO COCHRAN DNP, INSPECTOR [employer]-BC 05/04/18 Reported Medications Levothyroxine Sodium (LEVOTHYROXINE SODIUM) 50 Mcg Tablet, 0.12 MCG PO QDAY, TAB 05/09/18 Citalopram Hydrobromide (CITALOPRAM HBR) 40 Mg Tablet, 40 MG PO QDAY for 90 Days, #90 TAB 04/27/18 Lamotrigine (LAMOTRIGINE) 100 Mg Tablet, 50 MG PO QDAY for 90 Days 04/27/18 Bupropion Hcl (WELLBUTRIN XL) 150 Mg Tab.er.24h, 150 MG PO BID for 90 Days, TAB 04/26/18 Discontinued Reported Medications Levothyroxine Sodium (LEVOTHYROXINE SODIUM) 100 Mcg Tablet, 100 MCG PO QDAY for 90 Days, #90 TAB 04/26/18 Discontinued Scripts Acyclovir (ACYCLOVIR) 200 Mg Capsule, 600 MG PO TID, #90 CAP Prov:INGRIS BEAL DO 04/28/18 Reviewed Nurses Notes: Yes Old Medical Records Reviewed: Yes Hx Smoking: No Smoking Status: Never Smoker, Former Smoker Exposure to Second Hand Smoke?: No Hx Substance Use Disorder: No Hx Alcohol Use: No Constitutional Vital Sign - Last 24 Hours 05/10/18 05/10/18 05/10/18 05/10/18 13:02 13:02 13:09 13:24 Temp 98.5 Pulse 57 59 55 Resp 20 B/P (MAP) 210/94 210/94 (132) Pulse Ox 96 96 95 O2 Delivery Room Air 05/10/18 05/10/18 05/10/18 05/10/18 13:39 13:54 14:01 14:09 Pulse 55 57 56 B/P (MAP) 182/92 (122) Pulse Ox 95 96 95 05/10/18 05/10/18 05/10/18 05/10/18 14:24 14:39 14:47 14:52 Pulse ? 56 B/P (MAP) 194/94 (127) Pulse Ox 94 05/10/18 05/10/18 05/10/18 05/10/18 15:11 15:22 15:30 15:52 Pulse 57 53 B/P (MAP) 209/104 (139) 181/86 (117) Pulse Ox 95 92 05/10/18 05/10/18 05/10/18 16:00 16:22 16:30 Pulse 56 B/P (MAP) 175/82 (113) 192/94 (126) Pulse Ox 94 Physical Exam General Appearance: The patient is alert, has no immediate need for airway protection and no signs of toxicity. Eyes: Pupils equal and round no pallor or injection. ENT, Mouth: Mucous membranes are moist. Respiratory: There are no retractions, lungs are clear to auscultation. Cardiovascular: Regular rate and rhythm. Neurological: alert, oriented, reflexes nl, 5/5 ms throughout, cn ii-xii grossly nl, nl cerebellar exam Skin: Warm and dry, no rashes. Musculoskeletal: Neck is supple non tender. Extremities are nontender, nonswollen and have full range of motion. DIFFERENTIAL DIAGNOSIS: After history and physical exam differential diagnosis was considered for spinal stewart, meningitis, sah, ich, or other emergent etiology. Medical Decision Making ED Course/Re-evaluation ED Course pt sig improved after blood patch. BP normalizing. No sig adverse effects No back pain at site of lp or blood patch. Considered introduction of meningitis but pt sig imprvoed, afebrile throughout and unlikely. She is aware of uncontrolled htn and pcm is managing this; this is likely contributory though I think it is less likely the cause of her symptoms. Decision to Disposition Date: May 10, 2018 Decision to Disposition Time: 16:30 Depart Departure Latest Vital Signs Vital Signs Date Time Temp Pulse Resp B/P (MAP) Pulse Ox O2 Delivery O2 Flow Rate FiO2 05/10/18 16:30 192/94 (126) 05/10/18 16:22 56 94 05/10/18 13:02 98.5 20 Room Air Impression: Primary Impression: Headache Additional Impression: Elevated blood pressure reading Condition: Improved Disposition: HOME OR SELF-CARE Patient Instructions: Epidural Blood Patch (DC) Additional Instructions: As we discussed, please follow up very closely for continued evaluation of blood pressure. Please return immediately for any new or concerning symptoms or uncontrolled headache. I recommend minimizing NSAID's until blood pressure is controlled. Problem Qualifiers Primary Impression: Headache Headache type: other headache syndrome Qualified Codes: G44.89 - Other headache syndrome JUAN LUIS VOGEL MD May 10, 2018 13:03
[2018-05-10] MEDS ORDERED: ONDANSETRON 4 MG ODT TABDP SL ONE (13:15)
[2018-05-10] MEDS ORDERED: KETOROLAC 15 MG/ML VIAL IVP ONE (13:15)
[2018-05-10] MEDS ORDERED: ONDANSETRON 4 MG/2 ML VIAL IVP ONE (14:45)
--- NOTE | 2018-05-10 15:11 | Blood Patch Procedure Note ---
History of Present Illness Diagnosis: Post Dural Puncture SOSA Anesthesia Start Date: May 10, 2018 Anesthesia Start Time: 14:15 Vital Signs: Vital Signs Date Time Temp Pulse Resp B/P (MAP) Pulse Ox O2 Delivery O2 Flow Rate FiO2 05/10/18 13:02 98.5 57 20 210/94 96 Room Air Pain Ratin Height (Feet): 5 Height (Inches): 5 Weight (Pounds): 123 Past Medical History Medical History: obesity Surgical History: gastric bypass Previous Anesthesia: general Hx Anesthesia Reactions: No Hx Family Anesthesia Reaction: No Current Medications: other (Advil, ibuprofen, Lisinipril) Home Meds Active Scripts Prochlorperazine Maleate (PROCHLORPERAZINE MALEATE) 10 Mg Tablet, 10 MG PO Q8H for PAIN for 3 Days, #14 TAB Prov:KATIE VOGEL MD 05/09/18 Ketorolac Tromethamine (KETOROLAC TROMETHAMINE) 10 Mg Tab, 10 MG PO Q6H PRN for PAIN, #12 TAB 0 Refills Prov:KATIE VOGEL MD 05/09/18 Lisinopril (LISINOPRIL) 10 Mg Tablet, 1 TAB PO QDAY for 90 Days, #90 TAB 0 Refills Prov:GABINO COCHRAN DNP, [employer]ER [employer]SEMBLER-BC 05/04/18 Reported Medications Levothyroxine Sodium (LEVOTHYROXINE SODIUM) 50 Mcg Tablet, 0.12 MCG PO QDAY, TAB 05/09/18 Citalopram Hydrobromide (CITALOPRAM HBR) 40 Mg Tablet, 40 MG PO QDAY for 90 Days, #90 TAB 04/27/18 Lamotrigine (LAMOTRIGINE) 100 Mg Tablet, 50 MG PO QDAY for 90 Days 04/27/18 Bupropion Hcl (WELLBUTRIN XL) 150 Mg Tab.er.24h, 150 MG PO BID for 90 Days, TAB 04/26/18 Discontinued Reported Medications Levothyroxine Sodium (LEVOTHYROXINE SODIUM) 100 Mcg Tablet, 100 MCG PO QDAY for 90 Days, #90 TAB 04/26/18 Discontinued Scripts Acyclovir (ACYCLOVIR) 200 Mg Capsule, 600 MG PO TID, #90 CAP Prov:INGRIS BEAL DO 04/28/18 Allergies: Coded Allergies: amoxicillin (Verified Allergy, Mild, Hives, 04/26/18) Anesthesia OB ROS Neurological: migraines/headaches (Has headache, 2 weeks post LP) ENT: Denies Tooth caps, Denies Loose teeth, Denies Chipped teeth, Denies Dentures, Denies Bridges, Denies Retainers, Denies Veneers, Denies Implants, Denies Tongue ring, Denies Other Pulmonary: No asthma, No smoker (pks/day/yrs) Cardiovascular ROS: No edema, No arrhythmia GI ROS: clear liquids, nausea ROS: No Herpes, No STD(s), No Liver Disease, No Renal Disease Endocrine ROS: No diabetes, No gestational diabetes, No thyroid disorder Musculoskeletal ROS: No low back pain, No low back injury, No scoliosis ASA Classification: 2 Assessment and Plan Anesthesia Plan: Blood Patch Anesthesia Stop Day: May 10, 2018 Anesthesia Stop Time: 15:15 Anesthesia Comment: Called by ER physician about this patient, requesting a blood patch for treatment. History of LP 2 weeks ago and has been treated for meningitis x2 days of inpatient treatment. Since that time she has developed signs and sympt oms of PDHA. Thoroughly explained procedure for Blood Patch as well as the risks involved. Permit signed. Pt. was able to sit with leaning onto bedside table. Ultrasound used to locate interspace. Showed dura at 4.7 cms. Aseptic tech followed with chlorhexidine prep to area. 1% lidocaine local, 2 ml given with 25g at L3-4. Attempt x1 with 17g Toughy epidural needle. Very good BUZZ felt. No CSF noted at any time. RN then withdrew 10 ml from pt's left ac IV site. Slow injection of the blood while another 10ml was withdrawn. Pt. had no complaints of pressure or pain. Total of 20 ml was injected. Pt. was then assisted to lay supine with pillow under knees. Will observe for 1 hr and then allow her to begin to ambulate. Blood Pressure remains elevated. ZEE CHAVES CRNA May 10, 2018 15:11
--- NOTE | 2018-05-10 15:27 | Anesthesia Progress Note ---
Progress/Maintenance Anesthesia Note Date: May 10, 2018 Anesthesia Note Time: 15:15 Assessment and Plan Assessment Pt. states she still has some headache but has decreased in tensity. Instructed to rest next 24 hrs, with no straining or heavy lifting, and to call ER if any problems arise. Her co workers are present and are arranging her transportation home. ZEE CHAVES CRNA May 10, 2018 15:27
[2018-05-10 16:30] VITALS: BP 192/94
== END 2018-05-10 16:39 | disposition home or self-care (01) ==
LOC: ER 13:15
DX: G44.89 Other headache syndrome (principal); R03.0 Elevated blood-pressure reading, without diagnosis of hypertension
CPT/HCPCS: 62273; 96374; 99285; J2405; S0119

== ENCOUNTER → 2018-05-21 | Outpatient (CLI) | payer BC ==
[2018-04-27 09:57] VITALS: BMI 23.6
[~2018-05-21] MED LIST changes: +ALPR-429 PO; +LISI20TA29 PO; +METH4TAB66 PO
== END ==
LOC: AUD 14:00
PROVIDERS: ATTEND Nurse Practitioner Primary Care
DX: H90.3 Sensorineural hearing loss, bilateral (principal)
CPT/HCPCS: 92557; 92570